=== PATIENT | female | born 1955 | race Caucasian/White ===

== ENCOUNTER → 2016-11-03 16:53 | Outpatient (CLI) | payer OTHER ==
[2011-06-23 15:55] VITALS: BMI 27.1
== END | disposition home or self-care (01) ==
LOC: D.MAMMO 11:45
DX: Z12.31 Encounter for screening mammogram for malignant neoplasm of breast (principal)

== ENCOUNTER → 2018-01-11 19:18 | Outpatient (CLI) | payer OTHER ==
[2011-06-23 15:55] VITALS: BMI 27.1
== END | disposition home or self-care (01) ==
LOC: D.MAMMO 13:30
DX: Z12.31 Encounter for screening mammogram for malignant neoplasm of breast (principal)

== ENCOUNTER → 2018-05-05 08:08 | Outpatient (CLI) | payer OTHER ==
[2011-06-23 15:55] VITALS: BMI 27.1
[~2018-05-05 08:08] MED LIST: BAYER CHEWABLE81 MG PO; CYMBALTA60 MG PO; LIPITOR80 MG PO; PLAVIX75 MG PO; PREVACID30 MG PO; RANITIDINE HCL150 M1 PO
--- NOTE | 2018-05-09 11:46 | ST ---
PATIENT:SURY MCKEON MEDICAL RECORD: [id number] SEX: F LOCATION:[facility] ORDER #: ADMISSION DATE: 05/05/18 AGE OF PATIENT: 62 REFERRING PHYSICIAN: INTERPRETING PHYSICIAN: KRISSY GUTIERREZ MD DATE OF SERVICE: 05/05/2018 PROCEDURE: Nuclear stress test. INDICATIONS: Angina, hypertension, hyperlipidemia. She was exercised on standard Lexiscan protocol with 33 mCi of sestamibi injected at peak stress, 11 mCi were used previously for rest images. FINDINGS: Gated SPECT reveals preserved ejection fraction at 66% with history good wall motioning and thickening and brightening throughout all segments. SPECT imaging Cardiolite was used as myocardial fusion agent. There is reversible ischemia anteriorly, this includes the basal, mid apical anterior segments. The degree of reversibility is moderate. The amount of myocardium involved is moderate. OVERALL IMPRESSION: This is an abnormal nuclear stress test with moderate reversibility anteriorly suggestive of hemodynamically significant coronary artery disease. We will proceed with coronary angiography as followup study. TRANSINT:[id number] Voice Confirmation ID: [id number] DOCUMENT ID: [id number] KRISSY GUTIERREZ MD at 1146 CC: [id number] DICTATION DATE: 05/06/18 1347 CONTRACT DRIVER: 05/06/18 1359 DEP CLI 05/05/18 [id number] [place] [address]
[2018-05-16 08:11] VITALS: BMI 27.5
== END | disposition home or self-care (01) ==
LOC: D.HCCARDIO 08:08
DX: I20.9 Angina pectoris, unspecified (principal)

== ENCOUNTER 2018-05-13 07:36 | Outpatient (CLI) | payer OTHER ==
[~2018-05-13] VITALS: Ht 167.6 cm; Wt 77.3 kg
--- NOTE | ~2018-05-13 | HEMODYNAMI ---
PATIENT:SURY MCKEON MEDICAL RECORD: [id number] : 53 LOCATION:[facility] ADMISSION DATE: 05/13/18 Generatedon:05/13/20189:50 Patient name: SURY MCKEON Patient #: [id number] SSN: DO B: 1955 Date of study: 05/13/2018 Page: Of Hemodynamic Procedure Report Patient Data Patient Demographics Procedure consent was obtained First Name: SURY Gender: Female Last Name: MIKE : 1955 Middle Initial: M Age: 62 year(s) Patient #: [id number] Race: Unknown Additional ID: [id number] Contact details [address]: [address] [place] [address] [place] State: [place] City: [place] Zip code: [address] Past Medical History Allergies: No known allergies Admission Admission Data Admission Date: 05/13/2018 Admission Time: 7:36 Height (in.): 66 BSA: 1.9 (m2) Height (cm.): 167.64 BMI: 28.57 (kg/m2) Weight (lbs.): 177 Weight (kg.): 80.29 Lab Results Lab Result Date: 05/13/2018 Lab Result Time: 0:00 Biochemistry Name Units Result Min Max BUN mg/dl 21 --(----)-* 7 18 Creatinine mg/dl 0.8 --(-*--)-- 0.6 1.3 CBC Name Units Result Min Max Hemoglobin g/dl 13.6 --(*---)-- 13.5 17.5 Procedure Procedure Types Cath Procedure Diagnostic Procedure [facility] w/Coronaries Sedation Charges Moderate Sedation up to 15 minutes PCI Procedure Coronary Stent Coronary Stent Initial Procedure Description Procedure Date Procedure Date: 05/13/2018 Procedure Start Time: 9:35 Procedure End Time: 9:49 Procedure Staff Name Function James Dacosta MD Performing Physician Nik Kerr RT Monitor Sade Spencer RT Scrub Fadumo Chadwick RN Nurse Procedure Data Cath Procedure Fluoroscopy Diagnostic fluoroscopy Total fluoroscopy Time: 4 time: 4 min min Diagnostic fluoroscopy Total fluoroscopy dose: 545 dose: 545 mGy mGy Contrast Material Contrast Material Type Amount (ml) Isovue 300 88 Entry Location Entry Primary Successful Side Size Upsize Upsize Entry Closure Alberto ccessful Closure Location (Fr) 1 (Fr) 2 (Fr) Remarks Device Remarks Radial Right 6 Fr Mechanical artery Short Compression Estimated blood loss: 10 ml Diagnostic catheters Device Type Used For End Catheter Placement DIAGNOSTIC [place] 110cm 5 Procedure Fr catheter ([id number]) Procedure Complications No complications Procedure Medications Medication Administration Route Dosage Zofran I.V. 4 mg Oxygen etCO2 Nasal cannula 2 l/min Lidocaine 2% added to field 20 Heparin Flush Bag added to field 2 bags (1000units/500ml NS) 0.9% NaCl I.V. 100 ml/hr Radial Cocktail I.A. 1 syringe (Verapomil 2mg/Nitro 400mcg/Heparin 1500units) Versed I.V. 1 mg Fentanyl I.V. 50 mcg Versed I.V. 1 mg Fentanyl I.V. 50 mcg Heparin Bolus I.V. 4000 units Integrilin (Bolus I.V. 6.8 ml 2mg/ml) Plavix P.O. 600 mg Hemodynamics Rest BSA: 1.9 (m2) HGB: 13.6 (g/dl) O2 Consumption: Estimated: 188.86 (ml/min) O2 Con sumption indexed: Estimated:99.4 (ml/min/m) Heart Rate: 84 (bpm) Pressure Samples Time Site Value (mmHg) Purpose Heart Use Rate(bpm) 9:36 LV 69/12,4 Snapshot 144 Snapshots Pre Cath Intra NCS Post Cath Vital Signs Time Heart Resp SPO2 etCO2 NIBP (mmHg) Rhythm Pain Sedation Rate (ipm) (%) (mmHg) Status Level (bpm) 9:24:53 83 15 99 39.8 186/101(122) NSR 0 (11) 10(A) , No pain 9:29:15 78 13 97 13.5 161/86(127) NSR 0 (11) 10(A) , No pain 9:33:29 73 13 93 45.1 134/81(107) NSR 0 (11) 10(A) , No pain 9:37:33 81 16 95 1.5 123/84(93) NSR 0 (11) 9(A) , No pain 9:41:39 89 26 93 46.6 125/68(94) NSR 0 (11) 9(A) , No pain 9:45:42 95 15 95 42.1 127/75(105) NSR 0 (11) 9(A) , No pain 9:48:46 87 15 98 49.6 147/73(105) NSR 0 (11) 10(A) , No pain Medications Time Medication Route Dose Verified Delivered Reason Note s Effectiveness by by 9:25:51 Zofran I.V. 4 mg James Thorne Per physician Olesya Chadwick RN 9:26:02 Oxygen etCO2 2 l/min James [place]ooie used for Nasal Olesya Chadwick RN procedure cannula 9:26:09 Lidocaine 2% added 20ml James Ramirez for local to vial Olesya Dacosta MD anesthetic field 9:26:17 Heparin Flush added 2 bags James Ramirez used for Bag to Olesya Dacosta MD procedure (1000units/500ml field NS) 9:26:26 0.9% NaCl I.V. 100 Jamesendy Thorne Per physician ml/hr Olesya Chadwick RN 9:32:26 Versed I.V. 1 mg James Thorne for sedation Olesya Chadwick RN 9:32:32 Fentanyl I.V. 50 mcg James Thorne for sedation Olesya Chadwick RN 9:35:41 Radial Cocktail I.A. 1 Jamesendy Ramirez for (Verapomil syringe Olesya Dacosta MD vasodilation 2mg/Nitro 400mcg/Heparin 1500units) 9:35:48 Versed I.V. 1 mg James [place] for sedation Olesya Chadwick RN 9:35:51 Fentanyl I.V. 50 mcg James Thorne for sedation Olesya Chadwick RN 9:41:37 Heparin Bolus I.V. 4000 James Thorne for veri fied units Olesya Chadwick RN anticoagulation with dr dacosta 9:43:06 Integrilin I.V. 6.8 ml James Thorne for wast ed (Bolus 2mg/ml) Olesya Chadwick RN antiplatelet 3.2 ml therapy of vial 9:47:57 Plavix P.O. 600 mg James Thorne for Tauth MD Chadwick RN antiplatelet therapy Procedure Log Time Note 8:25:33 Informed consent obtained and on chart 8:40:55 H&P Date Dictated: 04/21/2018 Within 30 days and on chart., H&P Addendum completed by physician on day of procedure. (MUST COMPLETE FOR ALL OUTPATIENTS). 8:41:46 Patient Height : 66 inches 8:41:54 Patient Weight : 177 lbs 8:42:35 Patient allergic to No known allergies 8:43:17 Lab Result : Creatinine 0.8 mg/dl 8:43:17 Lab Result : BUN 21 mg/dl 8:43:17 Lab Result : Hemoglobin 13.6 g/dl 8:55:38 Time tracking: Regular hours (M-F 7:00 - 5:00) 8:55:47 Plan of Care:Hemodynamics will remain stable., Cardiac rhythm will remain stable., Comfort level will be maintained., Respiratory function will remain adequate., Patient/ family verbilizes understanding of procedure., Procedure tolerated without complication., Recovers from procedure without complications.. 9:13:10 Sade Spencer RT(R) sent for patient. Start room use. 9:16:47 Patient received from Pre/Post Procedure Room to CCL 1 Alert and oriented. Tansferred to table in Supine position. 9:16:48 Warm blankets applied, and magy hugger turned on for patient comfort. 9:16:49 Correct patient and procedure confirmed by team. 9:16:49 ECG and BP/O2 sat monitors applied to patient. 9:16:50 Pre-procedure instructions explained to patient. 9:16:51 Pre-op teaching completed and patient verbalized understanding. 9:16:52 Family in waiting room. 9:16:53 Patient NPO since Midnight. 9:16:55 Is the patient allergic to Iodine/contrast media? No. 9:23:50 Vital chart was started 9:24:06 Baseline sample Acquired. 9:25:51 Zofran 4 mg I.V. was administered by Fadumo Chadwick RN; Per physician; 9:26:02 Oxygen 2 l/min etCO2 Nasal cannula was administered by Fadumo Chadwick RN; used for procedure; 9:26:09 Lidocaine 2% 20ml vial added to field was administered by James Dacosta MD; for local anesthetic; 9:26:17 Heparin Flush Bag (1000units/500ml NS) 2 bags added to field was administered by James Dacosta MD; used for procedure; 9:26:26 0.9% NaCl 100 ml/hr I.V. was administered by Fadumo Chadwick RN; Per physician; 9:: Rhythm: sinus rhythm 9::24 Full Disclosure recording started 9:28:27 Is patient on blood thinner?No 9:28:28 Patient diabetic? No. 9:28:32 Previous problem with sedation/anesthesia? Yes nausea 9:28:33 Snore? Yes 9:28:34 Sleep apnea? No 9:28:35 Deviated septum? No 9:28:36 Opens mouth fully? Yes 9:28:36 Sticks out tongue? Yes 9:28:39 Airway obstruction? No ? 9:28:40 Dentures? No ? 9:28:43 Pre procedure: right dorsailis pedis pulse 2+ Normal; easily identifiable; not easily obliterated 9:28:44 Patient pain scale 0/10 ?. 9:28:46 Modified Paulino's test Ulnar < 7 seconds 9:28:49 IV patent on arrival in left antecubital with 0.9% NaCl at [facility]. 9:28:51 Lab results completed and on chart. 9:28:53 Right Radial & Right Groin area was prepped with chlora-prep and draped in sterile fashion 9:28:54 Alarms reviewed by R. N. 9:28:55 Sharps counted by scrub and verified by R.N. 9:28:57 Use device set Radial Dx or PCI 9:28:59 ACIST Syringe (28035) opened to sterile field. 9:28:59 Medline Cath Pack ([id number]) opened to sterile field. 9:29:01 Bag Decanter () opened to sterile field. 9:29:02 ACIST Hand Control (15394) opened to sterile field. 9:29:02 ACIST Manifold (62206) opened to sterile field. 9:29:03 Tegaderm 4 x 4 (1626W) opened to sterile field. 9:29:03 MBrace Wrist Support ([id number]) opened to sterile field. 9:29:04 SHEATH 6FR Slender (90-5790) opened to sterile field. 9:29:05 DIAGNOSTIC WIRE .035 260cm J wire (785125) opened to sterile field. 9:29:14 Physician arrived 9::15 --------ALL STOP TIME OUT------ ::15 Final Timeout: patient, procedure, and site verified with staff and physician. All members of the team are in agreement. 9:29:17 Right Radial & Right Groin site verified by team. 9:29:20 Fire Safety Assessment: A--An alcohol-based skin anteseptic being used preoperatively., C--Open oxygen or nitrous oxide is being used., D--An ESU, laser, or fiber-optic light is being used. 9::23 Physical assessment completed. ASA score P 2 - A patient with mild systemic disease as per James Dacosta MD. 9:29:25 Sedation plan: IV Moderate Sedation Medication:Versed, Fentanyl 9:32:26 Versed 1 mg I.V. was administered by Fadumo Chadwick RN; for sedation; 9:32:32 Fentanyl 50 mcg I.V. was administered by Fadumo Chadwick RN; for sedation; 9:32:36 Zero performed for pressure channel P1 9:35:07 Procedure started. 9:35:11 Local anesthetic to right radial artery with Lidocaine 2% by James Dacosta MD.INITIAL ACCESS ONLY 9:35:17 A 6 Fr Short sheath was inserted into the Right Radial artery 9:35:22 A DIAGNOSTIC [place] 110cm 5 Fr catheter ([id number]) was advanced over the wire and used for Procedure. 9:35:41 Radial Cocktail (Verapomil 2mg/Nitro 400mcg/Heparin 1500units) 1 syringe I.A. was administered by James Dacosta MD; for vasodilation; 9:35:48 Versed 1 mg I.V. was administered by Fadumo Chadwick RN; for sedation; 9:35:51 Fentanyl 50 mcg I.V. was administered by Fadumo Chadwick RN; for sedation; 9:36:42 LV gram done using SRINIVASAN 9:36:45 Injector settings: Ml/sec: 5, Volume: 15, 9:36:59 LV hemodynamics recorded. 9:37:02 EF : 60 % 9:37:04 RCA angiography performed. 9:39:17 GUIDE 6FR XBLAD 3.5 SH catheter ([id number]) opened to sterile field. 9:39:27 6 Fr xblad 3.5 sh guide catheter was inserted over the wire 9:40:30 LCA angiography performed. 9:40:52 INFLATOR Merit NoahixChaypak (CA6834) opened to sterile field. 9:41:00 CHOICE PT Extra Support 182cm wire ([id number]) opened to sterile field. 9:41:37 Heparin Bolus 4000 units I.V. was administered by Fadumo Chadwick RN; for anticoagulation; verified with dr dacosta 9:42:59 choice pt es wire advanced. 9:43:06 Integrilin (Bolus 2mg/ml) 6.8 ml I.V. was administered by Fadumo Chadwick RN; for antiplatelet therapy; wasted 3.2 ml of vial 9:43:07 Wire advanced across lesion. 9:44:41 Place stent Inflation Number: 1 A BERONICA RX 2.5 x 26 stent ([id number]) was prepped and advanced across the Mid CX. The stent was deployed at 11 JAS for 0:10 (min:sec). 9:46:36 Stent catheter was removed intact over wire. 9:46:42 Wire removed. 9:46:42 Guide catheter removed. 9:46:46 TR BAND Standard ([id number]) opened to sterile field. 9:46:53 Sheath removed intact; hemostasis achieved with Mechanical Compression to the Right Radial artery. 9:46:55 Procedure ended.(Physican Out) 9:47:06 Fluoroscopy time 04.00 minutes. 9:47:10 Fluoroscopy dose: 545 mGy 9:47:10 Flurop Dose total: 545 9:47:13 Contrast amount:Isovue 300 88ml. 9:47:14 Sharps counted by scrub and verified by R.N. 9:47:16 TR band inflated with 11cc of air. 9:47:17 Insertion/operative site no bleeding no hematoma. 9:47:23 Post right radial artery:stable, soft, clean and dry 9:47:24 Post Procedure Pulses reassessed and unchanged 9:47:26 Post-procedure physical assessment completed. ASA score P 2 - A patient with mild systemic disease as per James Dacosta MD. 9:47:28 Post procedure rhythm: unchanged. 9:47:31 Estimated blood loss: 10 ml 9:47:33 Post procedure instruction explained to patient.Patient verbalizes understanding. 9:47:35 Patient needs reinforcement of post procedure teaching. 9:47:50 Procedure type changed to Cath procedure, Diagnostic procedure, LHC, LHC w/Coronaries, Sedation Charges, Moderate Sedation up to 15 minutes, PCI procedure, Coronary Stent, Coronary Stent Initial 9:47:57 Plavix 600 mg P.O. was administered by Fadumo Chadwick RN; for antiplatelet therapy; 9:49:46 Procedure and supply charges have been captured, reviewed, submitted and are correct. 9:49:48 Procedure Complication : No complications 9:49:50 Vital chart was stopped 9:49:50 See physician's report for complete and final results. 9:49:51 Report given to Pre/Post Procedure Room. 9:49:54 Patient transfered to Pre/Post Procedure Room with Stretcher. 9:49:56 Procedure ended. 9:49:56 Full Disclosure recording stopped 9:49:59 End room use (Document Last) Intervention Summary Intervention Notes Time ActionType Lesion and Equipment Used Action# Pressure Duration Attributes 9:44:41 Place stent Mid CX BERONICA RX 2.5 x 1 11 00:10 26 stent ([id number]) Device Usage Item Name Manufacture Quantity Catalog Number Hospital Part Current M inimal Lot# / Charge Number Stock Stock Serial# Code ACIST Syringe Acist 1 21500 583993 050519 296466 2 0 (94657) Medical Systems Inc Medline Cath Medline 1 [id number] 393655 48609 394458 5 Pack ([id number]) Bag Decanter Microtek 1 2001S 502501 56098 344815 5 (2001S) Medical Inc. ACIST Hand Acist 1 39995 944457 455328 094282 5 Control Medical (51835) Systems Inc ACIST Manifold Acist 1 50345 623806 290604 891164 5 (11197) Medical Systems Inc Tegaderm 4 x 4 3M 1 1626W 889114 781798 399740 5 (1626W) MBrace Wrist Advanced 1 140-0250-00 841751 56817 797331 5 Support Vascular ([id number]) Dynamics SHEATH 6FR Terumo 1 [id number] 451230 622073 135147 5 Slender (80-1060) DIAGNOSTIC [facility] [place] 1 724491 395122 017546 187773 3 0 WIRE .035 260cm J wire (501214) DIAGNOSTIC Terumo 1 41-4079 096345 573617 190385 5 [place] 110cm 5 Fr catheter (167948) GUIDE 6FR Cardinal 1 [id number] 158962 393593 270900 3 XBLAD 3.5 Health catheter (59232518) INFLATOR Merit Merit 1 RO3420 485575 621295 374663 1 5 [facility] (HI[facility]90[facility] CHOICE PT [place] 1 [id number] 085750 439578 058147 5 Extra Support Scientific 182cm wire ([id number]) BERONICA RX 2.5 x Medtronic 1 [id number] 167807 7909212 440540 5 [id number] 26 stent ([id number]) TR BAND Terumo 1 [id number] 279618 516370 545395 4 0 Standard ([id number]) Signature Audit [place] Stage Time Signature Unsigned Intra-Procedure 05/13/2018 Nik Kerr 9:50:38 AM RT(R) Signatures Monitor : Nik Kerr RT Signature : Date : Time : [address] [address] [place] [address]
[2018-05-13] MEDS ORDERED: PREVACID30 MG PO (08:00)
[2018-05-13] MEDS ORDERED: RANITIDINE HCL150 M1 PO (08:00)
[2018-05-13] MEDS ORDERED: LIPITOR80 MG PO (08:01)
[2018-05-13] MEDS ORDERED: CYMBALTA60 MG PO (08:01)
[2018-05-13 08:08] VITALS: BP 138/69; Ht 167.6 cm; Wt 77.3 kg
[2018-05-13 08:27] LABS: BASOPHILS 0.2 % (0-2); EOSINOPHILS 0.9 % (0-7); HEMOGLOBIN 13.6 g/dL (12-16); IMMATURE GRANULOCYTES 0.5 % (0-5); LYMPHOCYTES 33.5 % (15-50); MCHC 33.2 g/dL (31.0-37.0); MCV 87.4 fL (80.0-100.0); MONOCYTES 7.1 % (2-11); NEUTROPHILS 57.8 % (40-80); PLATELET COUNT 175 10x3/uL (130-400); RBC 4.69 10x6/uL (4.00-5.40); RDW 13.8 % (11.5-14.5); WBC 5.5 10x3/uL (4.8-10.8)
[2018-05-13 08:29] LABS: CALC OSMOLALITY 292 mosm/kg (275-300); CALCIUM 8.6 mg/dL (8.5-10.1); CARBON DIOXIDE 25.7 mmol/L (21.0-32.0); CHLORIDE - SERUM 108 mmol/L (98-107); CREATININE - SERUM 0.8 mg/dL (0.6-1.3); GLUCOSE 116 mg/dL (74-106); SODIUM 145 mmol/L (136-145); UREA NITROGEN 21 mg/dL (7-18); eGFR NON AFRICAN AMERICAN 77 mL/min (90-120)
[2018-05-13] MEDS ORDERED: BAYER CHEWABLE81 MG PO (09:57)
[2018-05-13] MEDS ORDERED: PLAVIX75 MG PO (09:57)
--- NOTE | 2018-05-13 10:06 | NUR ---
RECIEVED TO ROOM VIA STRETCHER FROM SHREDDED FILLER CIGAR MAKER MACHINE WITH TR BAND TO R/WRIST CDI NO BLEEDING OR HEMATOMA NOTED. PATIENT CONNECTED TO MONITOR FOR OBSERVATION WITH HR 92 BP 166/99 CHEST PAIN IS DENIED.
--- NOTE | 2018-05-13 10:18 | NUR ---
TR BAND REMAINS TO R/WRIST CDI NO BLEEDING NOTED. VSS CALL LIGHT IS IN REACH WITH BED IN LOCKED POSITION
--- NOTE | 2018-05-13 10:35 | NUR ---
RESTING QUEITLY WITH NO DISTRESS VSS. TR BAND TO R/WRIST IS CDI WITH CAP REFILL BRISK
--- NOTE | 2018-05-13 10:52 | NUR ---
SANDWICH AND SODA TO BEDSIDE WITH NAUSEA DENIED. TR BAND TO R/WRIST IS CDI PATIENT DENIED CHEST PAIN
--- NOTE | 2018-05-13 11:30 | NUR ---
SITTING WITH HOB UP 30 CHEST PAIN IS DENIED. TR BAND TO R/WRIST IS CDI NO BLEEDING OR HEMATOMA NOTED.
--- NOTE | 2018-05-13 12:07 | NUR ---
RESTING QUIETLY WITH RESPIRATIONS EVEN AND UNLBORED. TR BAND TO R/WRIST IS CDI
--- NOTE | 2018-05-13 12:30 | NUR ---
PATIENT CONTINUES TO REST NO CHANGE IN ASSESSMENT
--- NOTE | 2018-05-13 13:00 | NUR ---
4 CC AIR REMOVED FROM TR BAND WITH NO BLEEDING OR HEMATOMA. VERBAL AND WRITTEN DISCHARGE GONE OVER WITH PATIENT
--- NOTE | 2018-05-13 13:12 | NUR ---
2 CC AIR REMOVED FROM TR BAND WITH NO BLEEDING
--- NOTE | 2018-05-13 13:21 | NUR ---
4 CC AIR REMOVED FROM TR BAND WITH NO BLEEDING. PIV REMOVED WITH DRESSING APPLIED. PATIENT DENIED CHEST PAIN ASSISTED TO SIDE OF BED FOR CLOTHING
--- NOTE | 2018-05-13 13:39 | NUR ---
TR BAND REMOVED WITH DRESSING APPLIED. PATIENT LEFT VIA WC TO PARKING FOR TRANSPORT HOME NO DISTRESS
--- NOTE | 2018-05-17 11:18 | OP ---
PATIENT NAME: SURY MCKEON MEDICAL RECORD: [id number] :53 LOCATION:D.CAT ADMISSION DATE: SURGEON: KRISSY GUTIERREZ MD DATE OF OPERATION: 05/13/2018 PROCEDURES: 1. PTCA stent left circumflex. 2. Left heart catheterization. 3. Selective coronary angiography. 4. Left ventriculogram. INDICATION: Angina and coronary artery disease. PROCEDURE PERFORMED: After informed consent was obtained and after a detailed description of risks, benefits as well as alternative therapies, the patient elected to proceed with angiogram and angioplasty. The right radial area was prepped and draped in normal sterile fashion. Right radial artery was cannulated via modified Seldinger technique with placement of 6-Upper [place] sheath. All catheters exchanged through this sheath. FINDINGS: The left ventriculogram was performed in standard 30-degree SRINIVASAN view, reveals good cardiac wall motion throughout all segments. Overall ejection fraction estimated 60%. SELECTIVE CORONARY ANGIOGRAPHY: 1. Left main is with no significant angiographic disease. 2. Left anterior descending has moderate irregularities, but no flow-limiting stenosis. 3. The left circumflex has a long area of 80% to 85% stenosis in the mid vessel. 4. Right coronary artery has a relatively long area of 80% to 85% stenosis in the mid vessel. PTCA STENT OF THE LEFT CIRCUMFLEX: The stent used was a 2.5 x 26 mm [place]. Result was 0% residual stenosis. OVERALL IMPRESSION: Successful percutaneous transluminal angioplasty stent of the left circumflex going from 85% initial stenosis to 0% residual. PLAN: PTCA stent of the RCA in the near future. TRANSINT:[id number] Voice Confirmation ID: [id number] DOCUMENT ID: [id number] KRISSY GUTIERREZ MD at 1118 CC: [id number] DICTATION DATE: 05/13/18 0950 SERVICE OR WORK DISPATCHER: 05/13/18 1031 DEP CLI 05/13/[address] [address]
== END 2018-05-13 13:40 | disposition home or self-care (01) ==
LOC: D.CATH 07:36
PROVIDERS: Internal Medicine Interventional Cardiology
DX: I25.119 Atherosclerotic heart disease of native coronary artery with unspecified angina pectoris (principal); Z01.812 Encounter for preprocedural laboratory examination

== ENCOUNTER 2018-05-16 07:34 | Outpatient (CLI) | payer OTHER ==
[~2018-05-16] VITALS: Ht 167.6 cm; Wt 77.3 kg
--- NOTE | ~2018-05-16 | HEMODYNAMI ---
PATIENT:SURY MCKEON MEDICAL RECORD: [id number] : 53 LOCATION:[facility] ADMISSION DATE: 05/16/18 Generatedon:05/16/20189:14 Patient name: SURY MCKEON Patient #: [id number] SSN: DO B: 1955 Date of study: 05/16/2018 Page: Of Hemodynamic Procedure Report Patient Data Patient Demographics Procedure consent was obtained First Name: SURY Gender: Female Last Name: MIKE : 1955 Middle Initial: M Age: 62 year(s) Patient #: [id number] Race: Unknown Additional ID: [id number] Contact details [address]: [address] [place] [address] [place] State: [place] City: [place] Zip code: [address] Past Medical History Allergies: No known allergies Admission Admission Data Admission Date: 05/16/2018 Admission Time: 7:34 Lab Results Lab Result Date: 05/13/2018 Lab Result Time: 0:00 Biochemistry Name Units Result Min Max BUN mg/dl 21 --(----)-* 7 18 Creatinine mg/dl 0.8 --(-*--)-- 0.6 1.3 CBC Name Units Result Min Max Hemoglobin g/dl 13.6 --(*---)-- 13.5 17.5 Procedure Procedure Types Cath Procedure Diagnostic Procedure Sedation Charges Moderate Sedation up to 15 minutes PCI Procedure Coronary Stent Coronary Stent Initial Procedure Description Procedure Date Procedure Date: 05/16/2018 Procedure Start Time: 8:53 Procedure End Time: 9:07 Procedure Staff Name Function Rita Lennon RT Scrub James Dacosta MD Performing Physician Denisse Lloyd RT Monitor Cait Dias RN Nurse Lina Rose RT Scrub Procedure Data Cath Procedure Fluoroscopy Diagnostic fluoroscopy Total fluoroscopy Time: 5 time: 5 min min Diagnostic fluoroscopy Total fluoroscopy dose: 559 dose: 559 mGy mGy Contrast Material Contrast Material Type Amount (ml) Isovue 300 94 Entry Location Entry Primary Successful Side Size Upsize Upsize Entry Closure Succes sful Closure Location (Fr) 1 (Fr) 2 (Fr) Remarks Device Remarks Femoral Right 7 Fr Exoseal artery Short Estimated blood loss: 10 ml Procedure Complications No complications Procedure Medications Medication Administration Route Dosage 0.9% NaCl I.V. 100 ml/hr Oxygen etCO2 Nasal cannula 2 l/min Lidocaine 2% added to field 20 Heparin Flush Bag added to field 2 bags (1000units/500ml NS) Versed I.V. 2 mg Fentanyl I.V. 50 mcg Versed I.V. 2 mg Fentanyl I.V. 50 mcg Heparin Bolus I.V. 4000 units Hemodynamics Rest HGB: 13.6 (g/dl) Heart Rate: 89 (bpm) Snapshots Pre Cath Intra NCS Post Cath Vital Signs Time Heart Resp SPO2 etCO2 NIBP (mmHg) Rhythm Pain Sedation Rate (ipm) (%) (mmHg) Status Level (bpm) 8:35:56 88 15 100 32.7 165/100(135) NSR 0 (11) 10(A) , No pain 8:40:16 85 15 100 32.7 153/79(121) NSR 0 (11) 10(A) , No pain 8:44:32 86 14 99 44.1 136/78(108) NSR 0 (11) 10(A) , No pain 8:48:46 80 18 99 42.7 134/72(84) NSR 0 (11) 10(A) , No pain 8:53:00 81 15 98 44.9 118/71(84) NSR 0 (11) 10(A) , No pain 8:57:08 85 12 98 46.4 120/72(97) NSR 0 (11) 9(A) , No pain 9:02:03 96 13 98 46.4 148/89(120) NSR 0 (11) 10(A) , No pain 9:06:17 101 15 100 45.7 167/90(126) NSR 0 (11) 10(A) , No pain 9:10:45 96 14 100 43.4 158/95(125) NSR 0 (11) 10(A) , No pain Medications Time Medication Route Dose Verified Delivered Reason Notes Effectiveness by by 8:43:21 0.9% NaCl I.V. 100 James Cait used for ml/hr Olesya Dias garment looper 8:43:32 Oxygen etCO2 2 James Cait used for Nasal l/min Olesya Dias procedure cannula RN 8:43:39 Lidocaine 2% added 20ml James James for local to vial Olesya Dacosta MD anesthetic field 8:43:43 Heparin Flush added 2 James James used for Bag to bags Olesya Dacosta MD procedure (1000units/500ml field NS) 8:49:49 Versed I.V. 2 mg James Cait for sedation Olesya Dias RN 8:49:54 Fentanyl I.V. 50 James Cait for sedation mcg Olesya Dias RN 8:54:02 Versed I.V. 2 mg James Cait for sedation Olesya Dias RN 8:54:06 Fentanyl I.V. 50 James Cait for sedation mcg Olesya Dias RN 8:54:26 Heparin Bolus I.V. 4000 James Cait for verifi ed units Olesya Dias anticoagulation with Dr. JAYASHREE Dacosta Procedure Log Time Note 8:27:14 Procedure type changed to Cath procedure, Diagnostic procedure, Sedation Charges, Moderate Sedation up to 15 minutes, PCI procedure, Coronary Stent, Coronary Stent Initial 8:28:02 Diagnostic Cath status Elective 8:28:04 Rita HALL(R) sent for patient. Start room use. 8:28:05 Time tracking: Regular hours (M-F 7:00 - 5:00) 8:28:12 Plan of Care:Hemodynamics will remain stable., Cardiac rhythm will remain stable., Comfort level will be maintained., Respiratory function will remain adequate., Patient/ family verbilizes understanding of procedure., Procedure tolerated without complication., Recovers from procedure without complications.. 8:28:20 Patient received from Pre/Post Procedure Room to CCL 2 Alert and oriented. Tansferred to table in Supine position. 8:28:48 Warm blankets applied, and magy hugger turned on for patient comfort. 8:28:49 Correct patient and procedure confirmed by team. 8:28:53 Signed procedure consent form obtained from patient. 8:34:47 Vital chart was started 8:35:56 ECG and BP/O2 sat monitors applied to patient. 8:35:57 Baseline sample Acquired. 8:36:02 Rhythm: sinus rhythm 8:36:04 Full Disclosure recording started 8:36:18 H&P Date Dictated: 05/16/2018 Within 30 days and on chart., H&P Addendum completed by physician on day of procedure. (MUST COMPLETE FOR ALL OUTPATIENTS). 8:36:20 Pre-procedure instructions explained to patient. 8:36:23 Family in waiting room. 8:36:26 Patient NPO since Midnight. 8:36:35 Patient allergic to No known allergies 8:36:37 Is the patient allergic to Iodine/contrast media? No. 8:36:38 Was the patient premedicated? Yes 8:36:40 Is patient on blood thinner?Yes 8:36:43 ACC The patient was administered the following blood thiners within the last 24 hours: ACCPlavix 8:36:46 Patient diabetic? No. 8:36:53 Previous problem with sedation/anesthesia? Yes nausea 8:36:55 Snore? Yes 8:36:56 Sleep apnea? No 8:36:58 Deviated septum? No 8:36:59 Opens mouth fully? Yes 8:37:01 Sticks out tongue? Yes 8:37:11 Patient pain scale 0/10 ?. 8:37:17 IV patent on arrival in left forearm with 0.9% NaCl at [facility]. 8:37:22 Lab results completed and on chart. 8:37:25 Right groin area was prepped with chlora-prep and draped in sterile fashion 8:37:26 Sharps counted by scrub and verified by R.N. 8:37:26 Alarms reviewed by R. N. 8:37:28 Physician paged 8:37:34 Pre procedure: right dorsailis pedis pulse 1+ Palpable, but thready & weak; easily obliterated 8:41:43 Use device set Femoral Dx 8:41:45 ACIST Syringe (03703) opened to sterile field. 8:41:46 Medline Cath Pack ([id number]) opened to sterile field. 8:41:46 Bag Decanter (2002S) opened to sterile field. 8:41:48 DIAGNOSTIC WIRE .035 260cm J wire (602262) opened to sterile field. 8:41:49 ACIST Hand Control (87963) opened to sterile field. 8:41:50 ACIST Manifold (86638) opened to sterile field. 8:41:53 Tegaderm 4 x 4 (1626W) opened to sterile field. 8:42:16 INFLATOR Merit Zack (TM7262) opened to sterile field. 8:42:16 SHEATH 6FR Fielding (GQK852) opened to sterile field. 8:42:17 CHOICE PT Extra Support 182cm wire ([id number]) opened to sterile field. 8:43:21 0.9% NaCl 100 ml/hr I.V. was administered by Cait Dias RN; used for procedure; 8:43:32 Oxygen 2 l/min etCO2 Nasal cannula was administered by Cait Dias RN; used for procedure; 8:43:38 Lidocaine 2% 20ml vial added to field was administered by James Dacosta MD; for local anesthetic; 8:43:43 Heparin Flush Bag (1000units/500ml NS) 2 bags added to field was administered by James Dacosta MD; used for procedure; 8:48:48 Physician arrived 8:48:49 --------ALL STOP TIME OUT------ 8:48:58 Final Timeout: patient, procedure, and site verified with staff and physician. All members of the team are in agreement. 8:49:03 Right groin site verified by team. 8:49:13 Fire Safety Assessment: A--An alcohol-based skin anteseptic being used preoperatively., C--Open oxygen or nitrous oxide is being used., D--An ESU, laser, or fiber-optic light is being used. 8:49:16 Physical assessment completed. ASA score P 2 - A patient with mild systemic disease as per James Dacosta MD. 8:49:21 Sedation plan: IV Moderate Sedation Medication:Versed, Fentanyl 8:49:49 Versed 2 mg I.V. was administered by Cait Dias RN; for sedation; 8:49:54 Fentanyl 50 mcg I.V. was administered by Cait Dias RN; for sedation; 8:53:33 SHEATH 7FR [place] (FEL375) opened to sterile field. 8:53:34 GUIDE 7FR AR 2.0 SH catheter ([id number]) opened to sterile field. 8:53:42 Procedure started. 8:53:52 Local anesthetic to right femoral artery with Lidocaine 2% by James Dacosta MD.INITIAL ACCESS ONLY 8:54:02 A 7 Fr Short sheath was inserted into the Right Femoral artery 8:54:02 Versed 2 mg I.V. was administered by Cait Dias RN; for sedation; 8:54:06 Fentanyl 50 mcg I.V. was administered by Cait Dias RN; for sedation; 8:54:20 7 Fr AR2SH guide catheter was inserted over the wire 8:54:26 Heparin Bolus 4000 units I.V. was administered by Cait Dias RN; for anticoagulation; verified with Dr. Dacosta 8:54:42 Choice pt wire advanced. 8:54:45 Wire advanced across lesion. 8:56:46 Place stent Inflation Number: 1 A BERONICA RX 2.5 x 26 stent ([id number]) was prepped and advanced across the Mid RCA. The stent was deployed at 13 JAS for 0:23 (min:sec). 9:00:03 Place stent Inflation Number: 1 A BERONICA RX 2.5 x 12 stent ([id number]) was prepped and advanced across the Mid RCA1. The stent was deployed at 13 JAS for 0:10 (min:sec). 9:03:44 Place stent Inflation Number: 1 A BERONICA RX 2.75 x 38 stent ([id number]) was prepped and advanced across the Prox RCA. The stent was deployed at 13 JAS for 0:14 (min:sec). 9:04:02 EXOSEAL 7Fr (EX700) opened to sterile field. 9:04:07 Wire removed. 9:04:08 Guide catheter removed. 9:04:28 Sheath removed intact; hemostasis achieved with Exoseal to the Right Femoral artery. 9:04:30 Procedure ended.(Physican Out) 9:04:40 Fluoroscopy time 05.00 minutes. 9:04:44 Fluoroscopy dose: 559 mGy 9:04:44 Flurop Dose total: 559 9:04:53 Contrast amount:Isovue 300 94ml. 9:04:55 Sharps counted by scrub and verified by R.N. 9:04:57 Insertion/operative site no bleeding no hematoma. 9:05:02 Post right femoral artery:stable 9:05:08 Post-procedure physical assessment completed. ASA score P 2 - A patient with mild systemic disease as per James Dacosta MD. 9:05:19 Post procedure rhythm: sinus rhythm 9:05:23 Estimated blood loss: 10 ml 9:05:24 Post procedure instruction explained to patient.Patient verbalizes understanding. 9:05:42 Procedure and supply charges have been captured, reviewed, submitted and are correct. 9:06:48 Procedure Complication : No complications 9:06:51 Vital chart was stopped 9:06:52 See physician's report for complete and final results. 9:06:55 Report given to Pre/Post Procedure Room. 9:06:58 Patient transfered to Pre/Post Procedure Room with Stretcher. 9:07:01 Full Disclosure recording stopped 9:07:01 Procedure ended. 9:07:05 End room use (Document Last) 9:13:34 Post Procedure Pulses reassessed and unchanged Intervention Summary Intervention Notes Time ActionType Lesion and Equipment Used Action# Pressure Duration Attributes 8:56:46 Place stent Mid RCA BERONICA RX 2.5 x 1 13 00:23 26 stent ([id number]) 9:00:03 Place stent Mid RCA1 BERONICA RX 2.5 x 1 13 00:10 12 stent ([id number]) 9:03:44 Place stent Prox RCA BERONICA RX 2.75 x 1 13 00:14 38 stent ([id number]) Device Usage Item Name Manufacture Quantity Catalog Number Hospital Part Current M inimal Lot# / Charge Number Stock Stock Serial# Code ACIST Syringe Acist 1 55621 257250 510297 695349 2 0 (71682) Medical Systems Inc Bag Decanter Microtek 1 686620 14396 425794 5 () Medical Inc. Medline Cath Medline 1 [id number] 953066 68642 854875 5 Pack ([id number]) DIAGNOSTIC [facility] [place] 1 759395 972738 264085 975742 3 0 WIRE .035 260cm J wire (292513) ACIST Hand Acist 1 79847 368937 904057 645863 5 Control Medical (46289) Systems Inc ACIST Manifold Acist 1 82658 984701 775452 674620 5 (00708) Medical Systems Inc Tegaderm 4 x 4 3M 1 1626W 171458 770165 972392 5 (1626W) SHEATH 6FR Terumo 1 USJ912 479172 018084 980214 4 0 Fielding (OXA396) INFLATOR Merit Merit 1 AR2599 230533 397990 200782 1 5 [facility] Medical (SA3375) CHOICE PT [place] 1 [id number] 213504 400291 741865 5 Extra Support Scientific 182cm wire ([id number]) SHEATH 7FR Terumo 1 BQF816 045235 974578 425931 5 Fielding (BTD796) GUIDE 7FR AR Medtronic 1 [id number] 826667 716972 101861 0 2.0 SH catheter ([id number]) BERONICA RX 2.5 x Medtronic 1 [id number] 324740 5252151 966544 5 [id number] 26 stent ([id number]) BERONICA RX 2.5 x Medtronic 1 [id number] 709293 3671630 823902 5 [id number] 12 stent ([id number]) BERONICA RX 2.75 x Medtronic 1 [id number] 544143 1161995 301755 5 [id number] 38 stent ([id number]) EXOSEAL 7Fr Cardinal 1 EX700 722638 881467 114320 5 (EX700) Health Signature Audit [place] Stage Time Signature Unsigned Intra-Procedure 05/16/2018 Denisse Lloyd 9:07:53 AM RT(R) RT(R) 05/16/2018 9:09:46 AM Intra-Procedure 05/16/2018 Denisse Lloyd 9:11:24 AM RT(R) RT(R) 05/16/2018 9:12:42 AM Intra-Procedure 05/16/2018 Denisse Lloyd 9:14:11 AM RT(R) Signatures Monitor : Denisse Lloyd Signature : RT Date : Time : [facility] [address] [place] [address]
[2018-05-16 08:11] VITALS: BP 140/74; Ht 167.6 cm; Wt 77.3 kg
[2018-05-16 08:32] LABS: BASOPHILS 0.2 % (0-2); EOSINOPHILS 1.4 % (0-7); HEMATOCRIT 40.5 % (36.0-48.0); HEMOGLOBIN 13.3 g/dL (12-16); IMMATURE GRANULOCYTES 0.2 % (0-5); LYMPHOCYTES 28.3 % (15-50); MCH 29.3 pg (26.0-34.0); MCHC 32.8 g/dL (31.0-37.0); MCV 89.2 fL (80.0-100.0); MONOCYTES 6.6 % (2-11); NEUTROPHILS 63.3 % (40-80); PLATELET COUNT 188 10x3/uL (130-400); RBC 4.54 10x6/uL (4.00-5.40); RDW 13.7 % (11.5-14.5); WBC 4.9 10x3/uL (4.8-10.8)
[2018-05-16 08:51] LABS: CALC OSMOLALITY 289 mosm/kg (275-300); CALCIUM 8.6 mg/dL (8.5-10.1); CHLORIDE - SERUM 108 mmol/L (98-107); CREATININE - SERUM 0.8 mg/dL (0.6-1.3); GLUCOSE 109 mg/dL (74-106); POTASSIUM - SERUM 3.7 mmol/L (3.5-5.1); SODIUM 145 mmol/L (136-145); UREA NITROGEN 13 mg/dL (7-18); eGFR NON AFRICAN AMERICAN 77 mL/min (90-120)
--- NOTE | 2018-05-17 11:18 | HP ---
PATIENT: SURY BAUM MEDICAL RECORD: [id number] ACCOUNT: [id number] LOCATION:[place] : 53 ADMISSION DATE: 05/16/18 PCP: RAMBO CROUCH MD HISTORY AND PHYSICAL EXAMINATION ADMITTING DIAGNOSES: 1. Angina. 2. Coronary artery disease. 3. Recent percutaneous transluminal coronary angioplasty stent of the left circumflex with concomitant disease of right coronary artery. 3. Hypertension. 4. Hyperlipidemia. HISTORY OF PRESENT ILLNESS: Mrs. Baum presents with anginal symptomatology, found to have 2-vessel coronary artery disease of the circumflex and RCA, underwent successful PTCA stent of the circumflex. He is now brought back for PTCA stent of the RCA. PHYSICAL EXAMINATION: GENERAL APPEARANCE: Well-nourished, well-developed, appears stated age. Level of distress, comfortable. PSYCHIATRIC: Mental status, alert, normal affect. Orientation, oriented to time, place and person. EYES: Lids and conjunctiva, noninjected. No discharge, no pallor. ENT: Lips, teeth, gums, normal dentition. Oropharynx, no cyanosis, no pallor. NECK: Carotid arteries, bilateral normal upstroke, no bruits, no thrills. JUGULAR VEINS: No jugular venous pressure or distention. CERVICAL LYMPH NODES: Nontender, nonenlarged. THYROID: Not enlarged. Nontender. No nodules. LUNGS: Respiratory effort, unlabored. CHEST: Normal curvature. No thoracic deformity. No chest wall tenderness. Percussion, resonant. Auscultation, clear. No wheezes, no rales, no rhonchi. CARDIOVASCULAR: Precordial exam, nondisplaced. No heaves or pericardial thrills. Rate and rhythm, regular. Heart sounds, normal S1, normal S2. No S3, no gallop, no rub. Systolic murmur, not heard. Diastolic murmur, not heard. EXTREMITIES: No cyanosis, no edema. Peripheral pulses, full and equal in all extremities, except as noted. No bruits appreciated. ABDOMEN: Soft, nondistended. Normal aorta. No bruit. Nontender. No masses. Liver, nontender, no hepatomegaly. Spleen, nontender, no splenomegaly. MUSCULOSKELETAL: No joint tenderness. No joint swelling. No erythema. NEUROLOGICAL: Normal gait, normal strength, normal tone. SKIN: Warm and dry. OVERALL IMPRESSION: We will proceed with percutaneous transluminal coronary angioplasty stent of the right coronary artery. TRANSINT:[id number] Voice Confirmation ID: [id number] DOCUMENT ID: [id number] HISTORY AND PHYSICAL [id number] SURY BAUM JEFFREY MD at 1118 CC: [id number] DICTATION DATE: 05/15/18 1015 FIELD GAUGER: 05/15/18 1048 DEP CLI 05/16/[address] [address]
--- NOTE | 2018-05-17 11:19 | OP ---
PATIENT NAME: SURY MCKEON MEDICAL RECORD: [id number] :53 LOCATION:D.CAT ADMISSION DATE: SURGEON: KRISSY GUTIERREZ MD DATE OF OPERATION: 05/16/2018 PROCEDURES: 1. PTCA stent RCA. 2. Selective coronary angiography. INDICATION: Angina and coronary artery disease. PROCEDURE IN DETAIL: After informed consent was obtained and after a detailed description of risks, benefits as well as alternative therapies, the patient elected to proceed with angiogram and angioplasty. The right femoral area was prepped and draped in normal sterile fashion. Right femoral artery was cannulated via modified Seldinger technique with placement of 7-[place] sheath. All catheters exchanged through this sheath. FINDINGS: The right coronary artery has long area of greater than 70% stenosis. This was addressed with a 2.5 x 12, 2.5 x 26, 2.75 x 38 all [place] stents. Result was 0% residual stenosis. OVERALL IMPRESSION: Successful percutaneous transluminal coronary angioplasty stent of the right coronary artery going from long area of greater than 70% initial stenosis to 0% residual. TRANSINT:[id number] Voice Confirmation ID: [id number] DOCUMENT ID: [id number] KRISSY GUTIERREZ MD at 1119 CC: [id number] DICTATION DATE: 05/16/18 09 MANAGER CASE MANAGEMENT: 05/16/18 1018 DEP CLI 05/16/18 [facility] [address] [place] [address]
== END 2018-05-16 13:05 | disposition home or self-care (01) ==
LOC: D.CATH 07:34
PROVIDERS: Internal Medicine Interventional Cardiology
DX: I25.119 Atherosclerotic heart disease of native coronary artery with unspecified angina pectoris (principal); Z95.5 Presence of coronary angioplasty implant and graft; I10 Essential (primary) hypertension; E78.5 Hyperlipidemia, unspecified; Z01.812 Encounter for preprocedural laboratory examination

== ENCOUNTER → 2018-09-07 13:41 | Outpatient (CLI) | payer OTHER ==
[2018-05-16 08:11] VITALS: BMI 27.5
--- NOTE | 2018-09-09 13:25 | EC ---
PATIENT:SURY MCKEON DATE OF SERVICE: 09/07/18 SEX: F MEDICAL RECORD: [id number] DATE OF : 53 LOCATION:D.[facility]ER[facility] AGE OF PATIENT: 63 ADMISSION DATE: 09/07/18 REFERRING PHYSICIAN: INTERPRETING PHYSICIAN: KRISSY DACOSTA MD ECHOCARDIOGRAM REPORT ECHO CHARGES 4 ECHO COMPLETE Date: 09/07/18 CLINICAL DIAGNOSIS: DYSPNEA HX CAD/STENTS ECHOCARDIOGRAPHIC MEASUREMENTS (adult normal given) AC root (d.<3.7cm) 3.2 cm LV Septum d (<1.2 cm> 1.2 cm Valve Excursion 1.4 cm LV Septum (systole) 1.3 cm Left Atria (s.<4.0cm> 3.5 cm LVPW d(<1.2cm) 1.6 cm RV (d.<2.3cm) 3.8 cm LVPW (sytole) 1.7 cm LV diastole(<5.6CM) 4.6 cm MV E-F(>70mm/sec) cm LV systole 2.9 cm LVOT Diameter 1.5 cm MV exc.(>10mm) 1.3 cm Est.ejection fraction (50-75%) % DOPPLER: LVIT cm/sec A 83.0 cm/sec E 55.0 cm/sec LA cm/sec RVSP 25 mmHg LVOT 103 cm/sec AOP1/2T m/s Asc. Ao 146 cm/sec RVOT 66 cm/sec RA cm/sec PA 88 cm/sec AV Gradient Peak 8.54 mmHg AV Mean 4.62 mmHg AV Area 1.5 cm MV Gradient Peak 3.05 mmHg MV Mean 1.08 mmHg MV Area cm COMMENTS: Capacitor Repairer: Tacho RODRIGUEZ Computer Tape Librarian: 1 Dr. Dacosta TAPE# PACS Pericardial Effusion N DATE OF SERVICE: 09/07/2018 ECHOCARDIOGRAM DATE OF SERVICE: 09/07/2018 FINDINGS: 1. Left ventricular chamber size is within normal limits. Left ventricular systolic function is normal. Overall ejection fraction estimated at 60%. 2. Left atrium, right atrium and right ventricular chamber sizes are within ECHOCARDIOGRAM REPORT [id number] SURY MCKEON normal limits. 3. Valvular structures have normal structure and motion. 4. Doppler interrogation reveals mild mitral regurgitation, mild tricuspid regurgitation, no other valvular insufficiency or stenosis. 5. No evidence of pericardial effusion or left ventricular thrombus. TRANSINT:[id number] Voice Confirmation ID: [id number] DOCUMENT ID: [id number] KRISSY DACOSTA MD at 1325 CC: [id number] DICTATION DATE: 09/07/18 171 SILK WASHING MACHINE OPERATOR: 09/07/18 1750 DEP CLI 09/07/18 [place] [id number] [place] [id number]
== END | disposition home or self-care (01) ==
LOC: D.HCCARDIO 13:30
PROVIDERS: ATTEND Internal Medicine Interventional Cardiology
DX: R06.02 Shortness of breath (principal)

== ENCOUNTER 2019-02-03 09:00 | Outpatient (CLI) | payer OTHER ==
[2018-05-16 08:11] VITALS: BMI 27.5
== END 2019-02-03 10:00 | disposition home or self-care (01) ==
LOC: D.MAMMO 09:00
PROVIDERS: ATTEND Family Medicine
DX: Z12.31 Encounter for screening mammogram for malignant neoplasm of breast (principal)

== ENCOUNTER → 2019-04-06 10:30 | Outpatient (CLI) | payer OTHER ==
[2018-05-16 08:11] VITALS: BMI 27.5
--- NOTE | ~2019-04-06 | EC ---
PATIENT:SURY MCKEON DATE OF SERVICE: 04/06/19 SEX: F MEDICAL RECORD: [id number] DATE OF : 53 [facility]GE [facility]: 63 ADMISSION DATE: 04/06/19 REFERRING PHYSICIAN: INTERPRETING PHYSICIAN: KRISSY DACOSTA MD ECHOCARDIOGRAM REPORT ECHO CHARGES 4 ECHO COMPLETE Date: 04/06/19 CLINICAL DIAGNOSIS: CAD/DYSPNEA/HTN ECHOCARDIOGRAPHIC MEASUREMENTS (adult normal given) AC root (d.<3.7cm) 3.2 cm LV Septum d (<1.2 cm> 1.2 cm Valve Excursion 1.5 cm LV Septum (systole) 1.4 cm Left Atria (s.<4.0cm> 3.2 cm LVPW d(<1.2cm) 1.3 cm RV (d.<2.3cm) 2.9 cm LVPW (sytole) 1.7 cm LV diastole(<5.6CM) 4.3 cm MV E-F(>70mm/sec) cm LV systole 2.8 cm LVOT Diameter 1.8 cm MV exc.(>10mm) 1.3 cm Est.ejection fraction (50-75%) % DOPPLER: LVIT cm/sec A 103.0cm/sec E 66.0 cm/sec LA cm/sec RVSP 20 mmHg LVOT 136 cm/sec AOP1/2T m/s Asc. Ao 161 cm/sec RVOT 104 cm/sec RA cm/sec PA 131 cm/sec AV Gradient Peak 7.43 mmHg AV Mean 4.38 mmHg AV Area 1.9 cm MV Gradient Peak 4.07 mmHg MV Mean 1.99 mmHg MV Area cm COMMENTS: Grey Goods Marker: 2 MIGUELINA RODRIGUEZ Proposal Writer: 1 Dr. Dacosta TAPE# PACS Pericardial Effusion N DATE OF SERVICE: FINDINGS: 1. Left ventricular chamber size is within normal limits. Left ventricular systolic function is normal. Overall ejection fraction estimated at 60%. 2. Left atrium is within normal limits at 3.2 cm. Right atrium and right ventricular chamber sizes are mildly dilated. 3. Valvular structures have normal structure and motion. 4. Doppler interrogation reveals mild mitral regurgitation, mild tricuspid regurgitation, no other valvular insufficiency or stenosis. Pulmonary systolic ECHOCARDIOGRAM REPORT [id number] SURY MCKEON pressure is normal estimated at 20 mmHg. 5. No evidence of pericardial effusion or left ventricular thrombus. TRANSINT:[id number] Voice Confirmation ID: [id number] DOCUMENT ID: [id number] KRISSY DACOSTA MD CC: [id number] DICTATION DATE: 04/10/19 165 COMMERCIAL TRUCK DRIVER: 04/10/19 2244 DEP CLI 04/06/19 [place] [id number] [place] [address]
== END | disposition home or self-care (01) ==
LOC: D.HCCARDIO 10:30 → D.HCCECHO 11:30
PROVIDERS: ATTEND Internal Medicine Cardiovascular Disease
DX: I25.119 Atherosclerotic heart disease of native coronary artery with unspecified angina pectoris (principal); I20.9 Angina pectoris, unspecified